=== PATIENT | female | born 2000 ===

== ENCOUNTER → 2021-10-23 09:46 | Outpatient (CLI) | payer OTHER, MEDICAID, SELFPAY ==
[2021-10-23 18:29] LABS: Appearance Urine UA CLEAR; Bilirubin Urine UA NEGATIVE (NEGATIVE); Color Urine UA YELLOW; Glucose Urine UA NEGATIVE (Negative); Ketones Urine UA NEGATIVE (NEGATIVE); Leukocyte Esterase Urine UA TRACE (NEGATIVE); Nitrite Urine UA NEGATIVE (Negative); Occult Blood Urine UA TRACE-LYSED (Negative); Protein Urine UA NEGATIVE (Negative); Urobilinogen Urine UA 0.2 E.U./dL (0.2)
[2021-10-23 18:43] LABS: Amorphous Sediment Urine 1+; RBC Urine 0-1/HPF (0-5/HPF); Squamous Epithelial Cell Urine 1-5 /HPF (0-5/HPF); WBC Urine 10-30/HPF (0-5/HPF)
[2021-10-23 18:44] LABS: Bacteria Urine Moderate (10-30); Culture Indicated Urine Specimen Cultured; Mucus Urine 1+ (Negative)
[2021-10-23 20:02] LABS: Urine N gonorrhoeae NOT DETECTED
[2021-10-23 20:34] LABS: Urine Chlamydia NOT DETECTED
== END ==
PROVIDERS: PCP Physician Assistant Medical; Visit Provider Physician Assistant Medical
DX: N76.0 Acute vaginitis (principal); R30.0 Dysuria
CPT/HCPCS: 81001; 81002; 87077; 87086; 87186; 87491; 87591

== ENCOUNTER → 2021-11-03 14:10 | Outpatient (CLI) | payer OTHER, MEDICAID, SELFPAY ==
[2021-11-03 19:49] LABS: Urine N gonorrhoeae NOT DETECTED
[2021-11-03 19:54] LABS: Urine Chlamydia NOT DETECTED
== END ==
PROVIDERS: PCP Physician Assistant Medical; Visit Provider Family Medicine
DX: N94.6 Dysmenorrhea, unspecified (principal); R10.9 Unspecified abdominal pain
CPT/HCPCS: 81002; 81025; 87491; 87591